=== PATIENT | female | born 1990 | race Caucasian/White ===

== ENCOUNTER 2024-05-04 23:09 | Emergency (ER) | payer SELFPAY ==
[2024-05-04 23:15] VITALS: BP 107/66
[2024-05-04 23:50] LABS: % Basophils 0.2 % (0-2); % Eosinophils 0.3 % (0-6); % Immature Granulocytes 0.2 % (0-0.5); % Lymphocytes 5.5 % (20.5-51.1); % Monocytes 2.9 % (1.7-9.3); % Neutrophils 90.9 % (42.2-75.2); Absolute Lymphocytes 0.5 10^3/uL (1.2-3.4); Absolute Monocytes 0.3 10^3/uL (0.1-0.6); Absolute Neutrophils 7.9 10^3/uL (1.4-6.5); Hematocrit 40.2 % (37.0-47.0); Hemoglobin 13.9 g/dL (12.0-16.0); Mean Corp Hgb Conc. 34.6 g/dL (33.0-37.0); Mean Corpuscular Volume 83.9 fL (81.0-99.0); Mean Platelet Volume 10.1 fL (7.4-10.4); Nucleated Red Blood Cells % 0 %; Platelet Count 228 10^3/uL (130-400); Red Blood Cell Count 4.79 10^6/uL (4.20-5.40); Red Cell Dist. Width 13.1 % (11.5-14.5); White Blood Cell Count 8.7 10^3/uL (4.8-10.8)
[2024-05-05 00:07] LABS: ALT (SGPT) 24 U/L (0-35); AST (SGOT) 43 U/L (14-36); Albumin 4.9 g/dl (3.5-5.0); Alkaline Phosphatase 94 U/L (38-126); Blood Urea Nitrogen 20 mg/dl (7-17); Calcium 9.6 mg/dl (8.4-10.2); Carbon Dioxide 30 mmol/L (22-30); Chloride 100 mmol/L (98-107); Glucose 130 mg/dl (70-99); Lactic Acid 1.3 mmol/L (0.7-2.0); Lipase 91 U/L (23-300); Potassium 3.7 mmol/L (3.5-5.1); Sodium 141 mmol/L (135-145); Total Bilirubin 0.4 mg/dl (0.2-1.3); Total Protein 8.5 g/dl (6.3-8.2); eGFR > 60.00
--- NOTE | 2024-05-05 00:42 | ED TECH ---
This UC received a phone call from the PT's . began yelling through the phone,and states has called him from the waiting room and that she is 'passing out all over the floor in the waiting room' and that ' no one is helping her'.
The PT's then stated he is home with two kids and he will now have to come over to the waiting room since no one is helping her. This UC then asked what his 's name was and reassured someone would go out and check on her. PT's
then hung up on this UC wihtout any other communication. This UC passed along the call to the charge nurse, triage and protocol nurses.
[2024-05-05 01:18] LABS: HCG, Serum Qualitative Screen Negative
[2024-05-05 03:39] VITALS: BP 92/65
[2024-05-05] MEDS: TYLENOL 650 MG PO (03:47)
[2024-05-05 06:33] VITALS: BP 97/62
--- NOTE | 2024-05-05 08:23 | ED.GENMED ---
Addendum entered and electronically signed by Deondre Pinto MD 05/05/24 12:28:
Of note patient states she normally runs a blood pressure of 90/6
Original Note:
History of Present Illness
General
Chief Complaint: Abdominal Pain
Source: patient
Exam Limitations: none
Time Seen by Provider: 05/05/24 08:11
Travel History
Have you had any contact with someone who has COVID-19?: No
Do you have any symptoms of coronavirus? Fever > 100 degrees, chills, cough, shortness of breath, sore throat, loss of taste or smell, muscle aches, or headache?: No
History of Present Illness
History of Present Illness:
33-year-old female started relatively quickly with nausea and vomiting last evening. Some mild diarrhea. Has had some breast pain with clogged breast ducts. This has been going on about a week. History of mastitis. She does however feel like
this is improving. No respiratory symptoms no urinary symptoms. No severe abdominal pain. Feels moderately improved with her long ER wait.
Past History
Past History
ED Past Medical History: None
ED Past Surgical History: and Gynecological (Tubal ligation)
Review of Systems
Review of Systems
All Other Systems: Not applicable
Constitutional: Denies chills
Respiratory: Reports no symptoms
: Reports no symptoms
Phy Exam
Physical Exam
Physical Exam:
GENERAL: Alert and oriented in no apparent distress
EYE: Orbits normal.
NECK: Supple
CARDIAC: Regular rate and rhythm without any obvious murmurs.
LUNGS: Clear breath sounds,normal
ABDOMEN: Soft, very minimal right lower quadrant tenderness. No rebound or guarding no mass or hernia. No CVA tenderness
NEUROLOGICAL: Alert and oriented , grossly non-focal
SKIN: Warm and dry, no rash or lesion, no discoloration, skin intact.
MUSCULOSKELETAL: No edema,no deformity.Good color
PSYCH: Normal and appropriate interaction.
Course
Orders/Labs/Results
Orders:
Orders
05/04/24 23:17
IV Insert/Care/Rem.- Treatment PRN
Test Result ONCE
05/04/24 23:43
Complete Blood Count/With Diff Urgent
Comprehensive Metabolic Panel Urgent
HCG, Serum Qualitative Screen Urgent
Lactate Level [Lactic Acid] Urgent
Lipase Urgent
05/05/24 03:45
Acetaminophen [Tylenol] 650 mg .ROUTE .STK-MED ONE
05/05/24 03:46
Acetaminophen [Tylenol] 650 mg PO NOW STA
05/05/24 08:22
IV Insert/Care/Rem.- Treatment PRN
0.9% Sodium Chloride 1000 ml [Nss] 1,000 ml IV BOLUS
Ondansetron Injectable [Zofran] 4 mg IV NOW STA
05/05/24 08:23
US Abdomen - Appendix Only Urgent
Comment:
Reason For Exam: Abdominal pain nausea vomiting
US Abdomen Complete/Upper Urgent
Comment:
Reason For Exam: Abdominal pain nausea vomiting
05/05/24 11:51
Urinalysis Reflex To Culture Urgent
Date Specimen was Collected: 05/05/24
Time Specimen was Collected: 11:16
05/05/24 12:09
Cephalexin Monohydrate [Keflex] 500 mg PO NOW STA
Ketorolac [Toradol] 15 mg IV NOW STA
Abnormal Lab Results
05/04/24
23:43
Absolute Neuts (auto) 7.9 H 10^3/uL
(1.4-6.5)
Absolute Lymphs (auto) 0.5 L 10^3/uL
(1.2-3.4)
Neutrophils % 90.9 H %
(42.2-75.2)
Lymphocytes % 5.5 L %
(20.5-51.1)
BUN 20 H mg/dl
(7-17)
Creatinine 0.5 L mg/dL
(0.6-1.0)
Glucose 130 H mg/dl
(70-99)
AST 43 H U/L
(14-36)
Total Protein 8.5 H g/dl
(6.3-8.2)
05/04/24 23:43
05/04/24 23:43
Vital Signs
Initial and Last Documented VS:
Initial Vital Signs
Temp Pulse Resp BP Pulse Ox
98.1 F 63 19 107/66 96
05/04/24 23:15 05/04/24 23:15 05/04/24 23:15 05/04/24 23:15 05/04/24 23:15
Last Documented Vital Signs
Temp Pulse Resp BP Pulse Ox
101.6 F H 107 18 90/59 96
05/05/24 11:57 05/05/24 09:23 05/05/24 09:23 05/05/24 09:23 05/05/24 09:23
*Radiology
Radiology exam reviewed: radiology read reviewed (Unremarkable ultrasounds)
*Pulse Oximetry
Patient hypoxic: no
*Critical Care Note
Total Time (30-74mins, 75-104mins- exclusive of procedures): Not Applicable
Update Note
Update Note:
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 Breast appear normal. No erythema no warmth no fluctuance no drainage.
1210... Patient currently sitting up pumping breastmilk. In no distress. Low-grade temperature here. Patient with a diastolic blood pressure of 90+. However patient is very petite. Clinically very nontoxic. Nothing to support a surgical
abdomen. Abdominal symptoms are resolved. No indication for CT scan. Offered influenza and COVID testing although would not tire changer. Patient does describe some mild breast symptoms and although I doubt that a mastitis is causing her
systemic symptoms we discussed antibiotics and will cover with Keflex. Stable for discharge to follow-up
ED Attending Note
-
Portions of this chart may have been created with voice recognition software.� Occasional wrong word or��sound alike� substitutions may have occurred due to the inherent limitations of voice recognition software.
Discharge Plan
Departure
Patient Disposition: Home (Routine Discharge)
Date of Disposition: 05/05/24
Time of Disposition: 12:12
Patient with high blood pressure during this ER visit?: No
Discharge Problem:
Nausea vomiting diarrhea, Fever, Possible mastitis
Instructions: Nausea and Vomiting, Adult (DC), Fever, Adult (DC), Abdominal Pain
Prescriptions:
New
cephalexin 500 mg capsule
500 mg PO TID 7 Days Qty: 21 0RF
Referrals:
PRIVATE,PHYSICIAN [Family Provider] -
Activity Restrictions/Additional Instructions:
Stay well-hydrated
Tylenol or Advil for pain
Follow-up closely with your primary physician
Recheck with recurrent abdominal pain persistent vomiting high fever or symptoms have not resolved in 1 to 2 days
Interventions
Interventions:
*Risk Screen - Suicide Last Done: 05/04/24 23:15
*General Assessment Last Done: 05/04/24 23:15
*Neglect/Abuse Screening Last Done: 05/04/24 23:15
ED- Fall Risk Assessment Last Done: 05/05/24 09:21
*ED COVID-19 Vaccine History Last Done: 05/04/24 23:15
OB-Uyolug-Joghwlptjr Assessment Last Done: 05/05/24 08:53
Discharge Date and Time
Print Language: [id number]
[2024-05-05] MEDS: NSS 1000 IV (08:46)
[2024-05-05] MEDS: ZOFRAN 4 MG IV (08:47)
[2024-05-05 09:20] VITALS: BMI 18.9
[2024-05-05 09:23] VITALS: BP 90/59
[2024-05-05 12:02] LABS: Urine Albumin Negative (Neg - Trace); Urine Bilirubin Negative (Negative); Urine Character Clear (Clear); Urine Color Yellow; Urine Glucose Negative (Negative); Urine Ketone Negative (Negative); Urine Leukocyte Negative (Negative); Urine Nitrite Negative (Negative); Urine Occult Blood Negative (Negative); Urine Urobilinogen Negative (Neg - 1+); Urine pH 6.5 (5.0-9.0)
[2024-05-05] MEDS: KEFLEX 500 MG PO (12:15)
[2024-05-05] MEDS: TORADOL 15 MG IV (12:16)
== END 2024-05-05 12:29 | disposition home or self-care (01) ==
LOC: EMR 23:09
PROVIDERS: Emergency Medicine; EMERGENCY PHYSICIAN Emergency Medicine
DX: R11.2 Nausea with vomiting, unspecified (principal); R19.7 Diarrhea, unspecified; R50.9 Fever, unspecified; N64.4 Mastodynia
CPT/HCPCS: 99284; 96374; 96375; 96361; 76700; 76705; 80053; 81003; 83605; 83690; 84703; 85025